=== PATIENT | male | born 1960 | race Caucasian/White ===

== ENCOUNTER 2016-07-02 21:20 | Emergency (ER) | payer MEDICAID ==
[~2016-07-02] VITALS: Ht 172.7 cm; Wt 98.4 kg
[~2016-07-02 21:20] MED LIST: IBUP-1174 OR; OME20GT; QUET300T14 OR
[2016-07-02 21:53] LABS: Basophils # (auto) 0 uL; Basophils % (auto) 0.4 % (0.0-2.0); Eosinophils # (auto) 0.2 uL; Eosinophils % (auto) 2.5 % (0.0-7.0); Hematocrit 41.3 % (41.0-53.0); Hemoglobin 14.3 g/dL (13.5-17.5); Lymphocytes # (auto) 2.3 uL; Lymphocytes % (auto) 27.7 % (10.0-50.0); Mean Corpuscular Hemoglobin 30.2 pg (28.0-32.0); Mean Corpuscular Hgb Conc. 34.6 g/dL (32.0-36.0); Mean Corpuscular Volume 87.3 fL (80.0-100.0); Mean Platelet Volume 7.7 fL (7.4-10.4); Monocytes # (auto) 0.4 uL; Monocytes % (auto) 5.4 % (0.0-12.0); Neutrophils # (auto) 5.2 uL; Platelet Count (auto) 219 10^3/uL (140-450); Red Cell Distribution Width 13.4 % (11.6-16.0); White Blood Cell 8.2 10^3/uL (4.4-10.8)
[2016-07-02 22:18] LABS: Albumin 3.5 g/dL (3.4-5.0); Potassium 3.7 mmol/L (3.5-5.1)
[2016-07-02 22:25] LABS: BUN/Creatinine Ratio 15.3; Bilirubin, Total 0.3 mg/dL (0.2-1.0)
[2016-07-02 22:27] LABS: Total Protein 7.3 g/dL (6.4-8.2)
[2016-07-03] MEDS ORDERED: IPRATROPIUM BROM 0.5 MG/2.5ML INH SOL NEB ONE (02:45)
[2016-07-03] MEDS ORDERED: ALBUTEROL SULF 2.5 MG/0.5ML(0.5%) NEB SOLN NEB ONE (02:45)
[2016-07-03] MEDS ORDERED: methylPREDNISolone SOD SUCC 125 MG/2 ML VL IV ONE (02:45)
[2016-07-03 03:38] VITALS: BP 131/92
== END 2016-07-03 04:47 | disposition home or self-care (01) ==
LOC: EDBD 21:20 → EDSEX 21:20 → ER 21:22
DX: J44.9 Chronic obstructive pulmonary disease, unspecified (principal); J40 Bronchitis, not specified as acute or chronic; I10 Essential (primary) hypertension; F17.200 Nicotine dependence, unspecified, uncomplicated
CPT/HCPCS: 36415; 71010; 80053; 85025; 94640; 96374; 99285; J2930

== ENCOUNTER 2016-08-14 06:40 | Emergency (ER) | payer MEDICAID ==
[~2016-08-14] VITALS: Ht 172.7 cm; Wt 122.5 kg
[2016-08-14] MEDS ORDERED: IPRATROPIUM BROM 0.5 MG/2.5ML INH SOL NEB ONE (07:00)
[2016-08-14] MEDS ORDERED: ALBUTEROL SULF 2.5 MG/0.5ML(0.5%) NEB SOLN NEB ONE (07:00)
[2016-08-14 07:17] LABS: Basophils # (auto) 0 uL; Basophils % (auto) 0.4 % (0.0-2.0); Eosinophils # (auto) 0.2 uL; Eosinophils % (auto) 2.8 % (0.0-7.0); Hematocrit 39.8 % (41.0-53.0); Hemoglobin 13.9 g/dL (13.5-17.5); Lymphocytes # (auto) 2.3 uL; Lymphocytes % (auto) 28.7 % (10.0-50.0); Mean Corpuscular Hemoglobin 30.8 pg (28.0-32.0); Mean Corpuscular Hgb Conc. 34.8 g/dL (32.0-36.0); Mean Corpuscular Volume 88.4 fL (80.0-100.0); Mean Platelet Volume 8.5 fL (7.4-10.4); Monocytes # (auto) 0.4 uL; Monocytes % (auto) 5.5 % (0.0-12.0); Neutrophils # (auto) 5.1 uL; Neutrophils % (auto) 62.6 % (37.0-80.0); Platelet Count (auto) 181 10^3/uL (140-450); Red Cell Distribution Width 14.1 % (11.6-16.0); White Blood Cell 8.1 10^3/uL (4.4-10.8)
[2016-08-14 07:30] LABS: INR 0.93 (0.9-1.15); Partial Thromboplastin Time 25.8 sec (22.64-33.71)
[2016-08-14] MEDS ORDERED: SODIUM CHLORIDE 0.9% 1,000 ML IV ONE (07:37)
[2016-08-14 07:47] LABS: Albumin 3.7 g/dL (3.4-5.0); Anion Gap 9 (5-15); Aspartate Aminotransferase 23 U/L (15-37); BUN/Creatinine Ratio 17.8; Blood Urea Nitrogen 21 mg/dL (7-18); Calcium 9.3 mg/dL (8.5-10.1); Carbon Dioxide 25 mmol/L (21-32); Chloride 103 mmol/L (98-107); GFR African American 83 mL/min; GFR Non-African American 68 mL/min; Glucose 102 mg/dL (74-106); Magnesium 1.8 mg/dL (1.6-2.6); Sodium 137 mmol/L (136-145)
[2016-08-14 07:52] LABS: Alkaline Phosphatase 89 U/L (45-117); Bilirubin, Total 0.5 mg/dL (0.2-1.0); Total Protein 7.3 g/dL (6.4-8.2)
[2016-08-14 08:40] LABS: Urine Bilirubin Negative (Negative); Urine Blood TRACE /uL (Negative); Urine Color Yellow (Yellow); Urine Glucose Normal (Normal); Urine Ketone Negative (Negative); Urine Nitrite Negative (Negative); Urine RBC <1 /hpf (0 - 3); Urine Urobilinogen Normal (Negative); Urine pH 5.5 (5.0-8.0)
[2016-08-14 09:35] VITALS: BP 132/87
== END 2016-08-14 11:24 | disposition home or self-care (01) ==
LOC: ER 06:40
DX: J44.1 Chronic obstructive pulmonary disease with (acute) exacerbation (principal); I10 Essential (primary) hypertension; K21.9 Gastro-esophageal reflux disease without esophagitis; F17.210 Nicotine dependence, cigarettes, uncomplicated
CPT/HCPCS: 36415; 71020; 80053; 81001; 83735; 84484; 85025; 85610; 85730; 93005; 94640; 94761; 96360; 99285; J7030

== ENCOUNTER 2016-08-22 01:08 | Inpatient (IN) | payer MEDICAID ==
[~2016-08-22] VITALS: Ht 172.7 cm; Wt 93.2 kg
[2016-08-22 01:37] LABS: Basophils # (auto) 0.1 uL; Basophils % (auto) 0.8 % (0.0-2.0); Eosinophils # (auto) 0.1 uL; Eosinophils % (auto) 1.2 % (0.0-7.0); Hematocrit 41.5 % (41.0-53.0); Lymphocytes # (auto) 2.4 uL; Lymphocytes % (auto) 24.6 % (10.0-50.0); Mean Corpuscular Hemoglobin 30.5 pg (28.0-32.0); Mean Corpuscular Hgb Conc. 33.8 g/dL (32.0-36.0); Mean Corpuscular Volume 90.1 fL (80.0-100.0); Mean Platelet Volume 7.9 fL (7.4-10.4); Monocytes # (auto) 0.7 uL; Monocytes % (auto) 6.9 % (0.0-12.0); Neutrophils # (auto) 6.4 uL; Neutrophils % (auto) 66.5 % (37.0-80.0); Platelet Count (auto) 211 10^3/uL (140-450); Red Cell Distribution Width 14.4 % (11.6-16.0); White Blood Cell 9.6 10^3/uL (4.4-10.8)
[2016-08-22] MEDS ORDERED: ALBUTEROL SULF 2.5 MG/0.5ML(0.5%) NEB SOLN NEB ONE ×2 (01:45→07:15)
[2016-08-22] MEDS ORDERED: IPRATROPIUM BROM 0.5 MG/2.5ML INH SOL NEB ONE ×2 (01:45→07:15)
[2016-08-22 01:49] LABS: INR 0.97 (0.9-1.15); Prothrombin Time 10.5 sec (9.37-12.3)
[2016-08-22 01:55] LABS: Albumin 3.7 g/dL (3.4-5.0); Anion Gap 9 (5-15); Aspartate Aminotransferase 27 U/L (15-37); BUN/Creatinine Ratio 14.4; Blood Urea Nitrogen 27 mg/dL (7-18); Calcium 8.4 mg/dL (8.5-10.1); Carbon Dioxide 24 mmol/L (21-32); Chloride 106 mmol/L (98-107); GFR African American 48 mL/min; GFR Non-African American 40 mL/min; Glucose 107 mg/dL (74-106); Potassium 4.5 mmol/L (3.5-5.1); Sodium 139 mmol/L (136-145)
[2016-08-22 02:00] LABS: Alkaline Phosphatase 60 U/L (45-117); Bilirubin, Total 0.5 mg/dL (0.2-1.0); Total Protein 6.9 g/dL (6.4-8.2)
[2016-08-22 02:37] LABS: Urine Bilirubin Negative (Negative); Urine Color Yellow (Yellow); Urine Glucose Normal (Normal); Urine Granular Cast FEW /lpf (0); Urine Hyaline Cast FEW /lpf (0 - 2); Urine Ketone Negative (Negative); Urine Nitrite Negative (Negative); Urine RBC 1 /hpf (0 - 3); Urine Urobilinogen Normal (Negative); Urine pH 5.5 (5.0-8.0)
[2016-08-22 02:38] LABS: Urine Blood 1+ /uL (Negative)
[2016-08-22] MEDS ORDERED: methylPREDNISolone SOD SUCC 125 MG/2 ML VL IV ONE ×2 (03:45→07:15)
[2016-08-22 04:37] LABS: B-Type Natriuretic Peptide 4.25 pg/mL (0-100)
[2016-08-22 04:46] LABS: Temperature: 21.7 C (20.0-25.0)
[2016-08-22] MEDS ORDERED: cefTRIAXone 1GM/50ML D5W 50 ML IV ONE (07:15)
[2016-08-22] MEDS ORDERED: CLINDAMYCIN 900MG IV 50 ML IV ONE (07:15)
[2016-08-22 08:04] LABS: Lactic Acid w/Reflex 2.1 mmol/L (0.4-2.0)
[2016-08-22 08:08] LABS: REFLEX LACTIC ACID YES OR NO YES
[2016-08-22] MEDS ORDERED: ACETAMINOPHEN 500 MG TAB PO PRN (09:00)
[2016-08-22] MEDS ORDERED: PROMETHAZINE HCL 25 MG/ML 1ML IV PRN (09:00)
[2016-08-22] MEDS ORDERED: LORazepam 0.5 MG TAB PO PRN (09:00)
[2016-08-22] MEDS ORDERED: NITROGLYCERIN 0.4 MG SL TAB SL PRN (09:00)
[2016-08-22] MEDS ORDERED: ALBUTEROL SULF 2.5 MG/0.5ML(0.5%) NEB SOLN NEB PRN (09:00)
[2016-08-22] MEDS ORDERED: MORPHINE SULF INJ 2 MG/ML SYRINGE 1ML IV PRN ×2 (09:00)
[2016-08-22] MEDS ORDERED: LACTULOSE 20Gm/30ML SOLN PO PRN (09:00)
[2016-08-22] MEDS ORDERED: TEMAZEPAM 15 MG CAP PO PRN (09:00)
[2016-08-22] MEDS: amLODIPine BESYLATE 5 MG TAB PO SCH (09:57)
[2016-08-22] MEDS: ENOXAPARIN SOD 40 MG/0.4 ML SYRINGE SC SCH (09:57)
[2016-08-22] MEDS: PANTOPRAZOLE 40 MG TAB PO SCH (09:59)
[2016-08-22] MEDS: QUEtiapine FUMARATE 100 MG TAB PO SCH ×2 (10:00→21:37)
[2016-08-22] MEDS: SODIUM CHLORIDE 0.9% 1,000 ML IV SCH ×2 (10:00→21:38)
[2016-08-22] MEDS: LEVOFLOXACIN 500MG 100 ML IV SCH (10:07)
[2016-08-22] MEDS ORDERED: methylPREDNISolone SOD SUCC 40 MG/ML VL IV SCH (12:00)
[2016-08-22] MEDS: CLINDAMYCIN 600MG IV 50 ML IV SCH ×2 (14:00→21:36)
[2016-08-22] MEDS: HYDROcodone-ACET 5/325MG TAB PO PRN ×2 (14:56→21:38)
[2016-08-22] MEDS: PROMETHAZINE W/CODEINE 5 ML ORAL SYRUP PO PRN (15:02)
[2016-08-22 17:00] VITALS: BP 147/84
[2016-08-22] MEDS: IPRATROPIUM BROM 0.5 MG/2.5ML INH SOL NEB SCH (18:52)
[2016-08-22] MEDS: ALBUTEROL SULF 2.5 MG/0.5ML(0.5%) NEB SOLN NEB SCH (18:52)
[2016-08-22 19:28] VITALS: BP 147/84
[2016-08-22 20:49] VITALS: BP 134/82
[2016-08-22] MEDS: methylPREDNISolone SOD SUCC 40 MG/ML VL IV SCH (21:37)
[2016-08-23] VITALS (7 sets, daily range): BP systolic 122–163; BP diastolic 64–107
[2016-08-23] MEDS: ALBUTEROL SULF 2.5 MG/0.5ML(0.5%) NEB SOLN NEB SCH ×4 (00:53→18:31)
[2016-08-23] MEDS: IPRATROPIUM BROM 0.5 MG/2.5ML INH SOL NEB SCH ×3 (00:53→18:31)
[2016-08-23] MEDS: PROMETHAZINE W/CODEINE 5 ML ORAL SYRUP PO PRN ×3 (02:17→17:12)
[2016-08-23] MEDS: CLINDAMYCIN 600MG IV 50 ML IV SCH ×3 (05:41→21:17)
[2016-08-23 05:44] LABS: Basophils # (auto) 0 uL; Eosinophils # (auto) 0 uL; Eosinophils % (auto) 0.1 % (0.0-7.0); Hematocrit 38.8 % (41.0-53.0); Hemoglobin 13.1 g/dL (13.5-17.5); Lymphocytes # (auto) 0.9 uL; Lymphocytes % (auto) 6.7 % (10.0-50.0); Mean Corpuscular Hemoglobin 30.6 pg (28.0-32.0); Mean Corpuscular Hgb Conc. 33.7 g/dL (32.0-36.0); Mean Corpuscular Volume 90.9 fL (80.0-100.0); Mean Platelet Volume 8.7 fL (7.4-10.4); Monocytes # (auto) 0.4 uL; Monocytes % (auto) 3.2 % (0.0-12.0); Neutrophils # (auto) 11.5 uL; Platelet Count (auto) 167 10^3/uL (140-450); Red Cell Distribution Width 14.6 % (11.6-16.0); White Blood Cell 12.8 10^3/uL (4.4-10.8)
[2016-08-23 06:12] LABS: Albumin 3.4 g/dL (3.4-5.0); BUN/Creatinine Ratio 33.9; Bilirubin, Total 0.6 mg/dL (0.2-1.0); Total Protein 6.8 g/dL (6.4-8.2)
[2016-08-23] MEDS: PANTOPRAZOLE 40 MG TAB PO SCH (10:13)
[2016-08-23] MEDS: methylPREDNISolone SOD SUCC 40 MG/ML VL IV SCH ×2 (10:13→21:18)
[2016-08-23] MEDS: ENOXAPARIN SOD 40 MG/0.4 ML SYRINGE SC SCH (10:14)
[2016-08-23] MEDS: QUEtiapine FUMARATE 100 MG TAB PO SCH ×2 (10:14→21:18)
[2016-08-23] MEDS: LEVOFLOXACIN 500MG 100 ML IV SCH (10:15)
[2016-08-23] MEDS: amLODIPine BESYLATE 5 MG TAB PO SCH (10:31)
[2016-08-23] MEDS: HYDROcodone-ACET 5/325MG TAB PO PRN ×2 (10:31→17:11)
[2016-08-23] MEDS: SODIUM CHLORIDE 0.9% 1,000 ML IV SCH (11:13)
[2016-08-23] MEDS: LABETALOL HCL 5 MG/ML 4ML SYRINGE IV PRN (21:31)
[2016-08-24] VITALS (7 sets, daily range): BP systolic 135–163; BP diastolic 80–107
[2016-08-24] MEDS: IPRATROPIUM BROM 0.5 MG/2.5ML INH SOL NEB SCH ×4 (00:20→19:11)
[2016-08-24] MEDS: ALBUTEROL SULF 2.5 MG/0.5ML(0.5%) NEB SOLN NEB SCH ×4 (00:21→19:11)
[2016-08-24] MEDS: PROMETHAZINE W/CODEINE 5 ML ORAL SYRUP PO PRN ×2 (04:39→19:51)
[2016-08-24] MEDS: CLINDAMYCIN 600MG IV 50 ML IV SCH ×3 (05:04→21:10)
[2016-08-24] MEDS: SODIUM CHLORIDE 0.9% 1,000 ML IV SCH ×2 (05:30→14:21)
[2016-08-24] MEDS: HYDROcodone-ACET 5/325MG TAB PO PRN ×2 (09:04→21:27)
[2016-08-24] MEDS: LEVOFLOXACIN 500MG 100 ML IV SCH (09:05)
[2016-08-24] MEDS ORDERED: AMLO5TAB2 PO (09:22)
[2016-08-24] MEDS ORDERED: BENA20TA4 PO (09:22)
[2016-08-24] MEDS: methylPREDNISolone SOD SUCC 40 MG/ML VL IV SCH ×2 (10:53→21:10)
[2016-08-24] MEDS: ENOXAPARIN SOD 40 MG/0.4 ML SYRINGE SC SCH (10:55)
[2016-08-24] MEDS: amLODIPine BESYLATE 5 MG TAB PO SCH (10:56)
[2016-08-24] MEDS: PANTOPRAZOLE 40 MG TAB PO SCH (10:56)
[2016-08-24] MEDS: QUEtiapine FUMARATE 100 MG TAB PO SCH ×2 (10:57→21:16)
[2016-08-24] MEDS ORDERED: FUROSEMIDE 40 MG/4 ML VIAL IV ONE (14:00)
[2016-08-24] MEDS: BUDESONIDE (INHALATION) 0.5 MG/2 ML NEB NEB SCH (19:11)
[2016-08-24] MEDS: LABETALOL HCL 5 MG/ML 4ML SYRINGE IV PRN (21:11)
[2016-08-25] MEDS: ALBUTEROL SULF 2.5 MG/0.5ML(0.5%) NEB SOLN NEB SCH ×3 (01:09→12:16)
[2016-08-25] MEDS: IPRATROPIUM BROM 0.5 MG/2.5ML INH SOL NEB SCH ×3 (01:09→12:16)
[2016-08-25] MEDS: SODIUM CHLORIDE 0.9% 1,000 ML IV SCH (03:30)
[2016-08-25 04:34] VITALS: BP 133/96
[2016-08-25] MEDS: CLINDAMYCIN 600MG IV 50 ML IV SCH (05:18)
[2016-08-25 05:35] LABS: Basophils # (auto) 0 uL; Basophils % (auto) 0.2 % (0.0-2.0); Eosinophils # (auto) 0 uL; Eosinophils % (auto) 0.1 % (0.0-7.0); Hematocrit 39.9 % (41.0-53.0); Hemoglobin 13.6 g/dL (13.5-17.5); Lymphocytes # (auto) 0.9 uL; Lymphocytes % (auto) 9.4 % (10.0-50.0); Mean Corpuscular Hemoglobin 31.2 pg (28.0-32.0); Mean Corpuscular Hgb Conc. 34.1 g/dL (32.0-36.0); Mean Corpuscular Volume 91.7 fL (80.0-100.0); Mean Platelet Volume 8.4 fL (7.4-10.4); Monocytes # (auto) 0.5 uL; Monocytes % (auto) 4.7 % (0.0-12.0); Neutrophils # (auto) 8.3 uL; Neutrophils % (auto) 85.6 % (37.0-80.0); Platelet Count (auto) 170 10^3/uL (140-450); Red Cell Distribution Width 14.8 % (11.6-16.0); White Blood Cell 9.7 10^3/uL (4.4-10.8)
[2016-08-25 06:01] LABS: Albumin 3.4 g/dL (3.4-5.0); BUN/Creatinine Ratio 31.2; Bilirubin, Total 0.4 mg/dL (0.2-1.0); Calcium 8.9 mg/dL (8.5-10.1); Potassium 4.8 mmol/L (3.5-5.1); Total Protein 6.5 g/dL (6.4-8.2)
[2016-08-25] MEDS: BUDESONIDE (INHALATION) 0.5 MG/2 ML NEB NEB SCH (06:12)
[2016-08-25 08:00] VITALS: BP 156/95
[2016-08-25 09:00] VITALS: BP 144/93
[2016-08-25] MEDS: ENOXAPARIN SOD 40 MG/0.4 ML SYRINGE SC SCH (09:23)
[2016-08-25] MEDS: PANTOPRAZOLE 40 MG TAB PO SCH (09:26)
[2016-08-25] MEDS: methylPREDNISolone SOD SUCC 40 MG/ML VL IV SCH (09:26)
[2016-08-25] MEDS: QUEtiapine FUMARATE 100 MG TAB PO SCH (09:26)
[2016-08-25] MEDS: LEVOFLOXACIN 500MG 100 ML IV SCH (09:27)
[2016-08-25] MEDS: amLODIPine BESYLATE 5 MG TAB PO SCH (09:27)
[2016-08-25 12:21] VITALS: BP 144/93
[2016-08-25] MEDS: HYDROcodone-ACET 5/325MG TAB PO PRN (12:58)
[2016-08-25 13:00] VITALS: BP 144/83
== END 2016-08-25 13:35 | disposition home or self-care (01) | DRG 140 ==
LOC: ER 01:08 → TELE 01:09 → TELE-EAST 11:19
PROVIDERS: ADMIT Internal Medicine; ATTEND Internal Medicine
DX: J44.0 Chronic obstructive pulmonary disease with (acute) lower respiratory infection (principal); J45.901 Unspecified asthma with (acute) exacerbation; I10 Essential (primary) hypertension; K21.9 Gastro-esophageal reflux disease without esophagitis; J44.1 Chronic obstructive pulmonary disease with (acute) exacerbation; F17.210 Nicotine dependence, cigarettes, uncomplicated; F31.9 Bipolar disorder, unspecified; J20.9 Acute bronchitis, unspecified; Z80.1 Family history of malignant neoplasm of trachea, bronchus and lung; F11.90 Opioid use, unspecified, uncomplicated; F15.90 Other stimulant use, unspecified, uncomplicated; F41.9 Anxiety disorder, unspecified; Z90.89 Acquired absence of other organs
CPT/HCPCS: 36415; 71010; 73630; 76775; 80053; 80061; 81001; 83605; 83735; 83880; 84484; 85025; 85610; 85730; 87040; 87070; 87077; 87086; 87186; 87205; 93005; 93970; 94640; 96365; 96375; 96376; J0696; J1956; J3490

== ENCOUNTER 2016-09-13 22:56 | Emergency (ER) | payer MEDICAID ==
[~2016-09-13] VITALS: Ht 172.7 cm; Wt 99.8 kg
[~2016-09-13 22:56] MED LIST changes: +AMLO5TAB2 PO; +BENA20TA14 PO
[2016-09-14 00:35] LABS: Albumin 3.5 g/dL (3.4-5.0); Anion Gap 12 (5-15); Aspartate Aminotransferase 24 U/L (15-37); BUN/Creatinine Ratio 11.3; Blood Urea Nitrogen 15 mg/dL (7-18); Carbon Dioxide 25 mmol/L (21-32); Chloride 100 mmol/L (98-107); GFR African American 72 mL/min; GFR Non-African American 60 mL/min; Glucose 106 mg/dL (74-106); Magnesium 1.7 mg/dL (1.6-2.6); Potassium 4.1 mmol/L (3.5-5.1); Sodium 137 mmol/L (136-145)
[2016-09-14 00:40] LABS: Alkaline Phosphatase 89 U/L (45-117); Bilirubin, Total 0.4 mg/dL (0.2-1.0)
[2016-09-14 00:42] LABS: Basophils # (auto) 0 uL; Basophils % (auto) 0.6 % (0.0-2.0); Eosinophils # (auto) 0.2 uL; Eosinophils % (auto) 3.3 % (0.0-7.0); Hematocrit 40.7 % (41.0-53.0); Hemoglobin 14.2 g/dL (13.5-17.5); Lymphocytes # (auto) 2.3 uL; Lymphocytes % (auto) 36.8 % (10.0-50.0); Mean Corpuscular Hemoglobin 31.4 pg (28.0-32.0); Mean Corpuscular Hgb Conc. 34.8 g/dL (32.0-36.0); Mean Platelet Volume 8.7 fL (7.4-10.4); Monocytes # (auto) 0.4 uL; Neutrophils # (auto) 3.3 uL; Neutrophils % (auto) 53.3 % (37.0-80.0); Platelet Count (auto) 223 10^3/uL (140-450); Red Cell Distribution Width 13.6 % (11.6-16.0); White Blood Cell 6.2 10^3/uL (4.4-10.8)
[2016-09-14 00:51] LABS: B-Type Natriuretic Peptide < 5.0 pg/mL (0-100); Temperature: 21.9 C (20.0-25.0)
[2016-09-14] MEDS ORDERED: IPRATROPIUM BROM 0.5 MG/2.5ML INH SOL NEB ONE ×2 (03:45→05:15)
[2016-09-14] MEDS ORDERED: ALBUTEROL SULF 2.5 MG/0.5ML(0.5%) NEB SOLN NEB ONE ×2 (03:45→05:15)
[2016-09-14 03:51] VITALS: BP 120/77
[2016-09-14] MEDS ORDERED: methylPREDNISolone SOD SUCC 125 MG/2 ML VL IV ONE (05:15)
[2016-09-14 08:25] LABS: Urine Bilirubin Negative (Negative); Urine Blood TRACE /uL (Negative); Urine Color Yellow (Yellow); Urine Glucose Normal (Normal); Urine Ketone Negative (Negative); Urine Mucus FEW (None Seen); Urine Nitrite Negative (Negative); Urine RBC <1 /hpf (0 - 3); Urine Urobilinogen Normal (Negative); Urine pH 5.5 (5.0-8.0)
== END 2016-09-14 07:39 | disposition home or self-care (01) ==
LOC: ER 22:56
DX: J44.1 Chronic obstructive pulmonary disease with (acute) exacerbation (principal); I10 Essential (primary) hypertension; K21.9 Gastro-esophageal reflux disease without esophagitis; F17.210 Nicotine dependence, cigarettes, uncomplicated; F15.10 Other stimulant abuse, uncomplicated; F11.10 Opioid abuse, uncomplicated
CPT/HCPCS: 36415; 71020; 80053; 80307; 80320; 81001; 83735; 83880; 84484; 85025; 93005; 94640; 96374; 99285; J2930; J7030

== ENCOUNTER 2016-09-20 10:58 | Inpatient (IN) | payer MEDICAID ==
[~2016-09-20] VITALS: Ht 172.7 cm; Wt 102.0 kg
[2016-09-20 11:55] LABS: Basophils # (auto) 0 uL; Basophils % (auto) 0.5 % (0.0-2.0); Eosinophils # (auto) 0.2 uL; Eosinophils % (auto) 2.5 % (0.0-7.0); Hematocrit 40.6 % (41.0-53.0); Lymphocytes # (auto) 2.1 uL; Lymphocytes % (auto) 26.1 % (10.0-50.0); Mean Corpuscular Hemoglobin 31.2 pg (28.0-32.0); Mean Corpuscular Hgb Conc. 34.6 g/dL (32.0-36.0); Mean Corpuscular Volume 90.3 fL (80.0-100.0); Mean Platelet Volume 8.1 fL (7.4-10.4); Monocytes # (auto) 0.5 uL; Monocytes % (auto) 5.8 % (0.0-12.0); Neutrophils # (auto) 5.2 uL; Neutrophils % (auto) 65.1 % (37.0-80.0); Platelet Count (auto) 206 10^3/uL (140-450); Red Cell Distribution Width 13.9 % (11.6-16.0); White Blood Cell 8.1 10^3/uL (4.4-10.8)
[2016-09-20 12:28] LABS: Albumin 3.6 g/dL (3.4-5.0); Alkaline Phosphatase 71 U/L (45-117); Anion Gap 8 (5-15); Aspartate Aminotransferase 15 U/L (15-37); BUN/Creatinine Ratio 12.3; Bilirubin, Total 0.7 mg/dL (0.2-1.0); Blood Urea Nitrogen 14 mg/dL (7-18); Calcium 9.1 mg/dL (8.5-10.1); Carbon Dioxide 27 mmol/L (21-32); Chloride 99 mmol/L (98-107); GFR African American 86 mL/min; GFR Non-African American 71 mL/min; Glucose 109 mg/dL (74-106); Potassium 4.1 mmol/L (3.5-5.1); Sodium 134 mmol/L (136-145); Total Protein 6.6 g/dL (6.4-8.2)
[2016-09-20] MEDS ORDERED: methylPREDNISolone SOD SUCC 125 MG/2 ML VL IV ONE (16:00)
[2016-09-20] MEDS ORDERED: IPRATROPIUM BROM 0.5 MG/2.5ML INH SOL NEB ONE (16:00)
[2016-09-20] MEDS ORDERED: FUROSEMIDE 40 MG/4 ML VIAL IV ONE (16:00)
[2016-09-20] MEDS ORDERED: ALBUTEROL SULF 2.5 MG/0.5ML(0.5%) NEB SOLN NEB ONE (16:00)
[2016-09-20] MEDS ORDERED: cefTRIAXone 1GM/50ML D5W 50 ML IV ONE (16:00)
[2016-09-20] MEDS ORDERED: ALBUTEROL SULF 2.5 MG/0.5ML(0.5%) NEB SOLN NEB PRN (16:30)
[2016-09-20] MEDS ORDERED: TEMAZEPAM 15 MG CAP PO PRN (16:30)
[2016-09-20] MEDS ORDERED: NITROGLYCERIN 0.4 MG SL TAB SL PRN (16:30)
[2016-09-20] MEDS ORDERED: LORazepam 0.5 MG TAB PO PRN (16:30)
[2016-09-20] MEDS ORDERED: HYDROcodone-ACET 5/325MG TAB PO PRN (16:30)
[2016-09-20] MEDS ORDERED: ACETAMINOPHEN 500 MG TAB PO PRN (16:30)
[2016-09-20] MEDS ORDERED: LACTULOSE 20Gm/30ML SOLN PO PRN (16:30)
[2016-09-20] MEDS ORDERED: PROMETHAZINE HCL 25 MG/ML 1ML IV PRN (16:30)
[2016-09-20] MEDS ORDERED: MORPHINE SULF INJ 2 MG/ML SYRINGE 1ML IV PRN ×2 (16:30)
[2016-09-20 16:44] LABS: B-Type Natriuretic Peptide 2.14 pg/mL (0-100)
[2016-09-20 16:50] LABS: Temperature: 22.7 C (20.0-25.0)
[2016-09-20] MEDS ORDERED: BENAZEPRIL HCL 10 MG TAB PO ONE (17:00)
[2016-09-20] MEDS ORDERED: amLODIPine BESYLATE 5 MG TAB PO ONE (17:00)
[2016-09-20 17:07] LABS: Urine Bilirubin Negative (Negative); Urine Blood TRACE /uL (Negative); Urine Color Yellow (Yellow); Urine Glucose Normal (Normal); Urine Ketone Negative (Negative); Urine Nitrite Negative (Negative); Urine RBC 2 /hpf (0 - 3); Urine Urobilinogen Normal (Negative); Urine pH 5.5 (5.0-8.0)
[2016-09-20] MEDS: SODIUM CHLORIDE 0.9% 1,000 ML IV SCH (17:25)
[2016-09-20] MEDS: DOXYCYCLINE HYC 100MG/250ML 250 ML IV SCH (17:25)
[2016-09-20] MEDS: PANTOPRAZOLE 40 MG TAB PO SCH (17:27)
[2016-09-20 18:33] VITALS: BP 161/96
[2016-09-20] MEDS: ALBUTEROL SULF 2.5 MG/0.5ML(0.5%) NEB SOLN NEB SCH ×2 (18:55→23:44)
[2016-09-20] MEDS: IPRATROPIUM BROM 0.5 MG/2.5ML INH SOL NEB SCH ×2 (18:55→23:44)
[2016-09-20 19:49] VITALS: BP 161/96
[2016-09-20] MEDS ORDERED: MIRT15TA PO (21:42)
[2016-09-20] MEDS ORDERED: QUEtiapine FUMARATE 100 MG TAB PO SCH (22:00)
[2016-09-20 22:29] VITALS: BP 101/78
[2016-09-20] MEDS: methylPREDNISolone SOD SUCC 40 MG/ML VL IV SCH (23:34)
[2016-09-21 05:00] VITALS: BP 117/77
[2016-09-21] MEDS: methylPREDNISolone SOD SUCC 40 MG/ML VL IV SCH ×2 (05:24→12:46)
[2016-09-21] MEDS: DOXYCYCLINE HYC 100MG/250ML 250 ML IV SCH (05:24)
[2016-09-21] MEDS: SODIUM CHLORIDE 0.9% 1,000 ML IV SCH (05:33)
[2016-09-21 06:09] LABS: Basophils # (auto) 0 uL; Basophils % (auto) 0.2 % (0.0-2.0); Eosinophils # (auto) 0 uL; Eosinophils % (auto) 0.2 % (0.0-7.0); Hemoglobin 13.8 g/dL (13.5-17.5); Lymphocytes % (auto) 10.8 % (10.0-50.0); Mean Corpuscular Hemoglobin 31.8 pg (28.0-32.0); Mean Corpuscular Hgb Conc. 35.3 g/dL (32.0-36.0); Mean Platelet Volume 8.1 fL (7.4-10.4); Monocytes # (auto) 0.1 uL; Monocytes % (auto) 0.8 % (0.0-12.0); Neutrophils # (auto) 8.4 uL; Platelet Count (auto) 195 10^3/uL (140-450); Red Cell Distribution Width 13.8 % (11.6-16.0); White Blood Cell 9.5 10^3/uL (4.4-10.8)
[2016-09-21] MEDS: ALBUTEROL SULF 2.5 MG/0.5ML(0.5%) NEB SOLN NEB SCH ×2 (06:25→12:16)
[2016-09-21] MEDS: IPRATROPIUM BROM 0.5 MG/2.5ML INH SOL NEB SCH ×2 (06:25→12:16)
[2016-09-21 09:30] VITALS: BP 131/81
[2016-09-21] MEDS: PANTOPRAZOLE 40 MG TAB PO SCH (09:56)
[2016-09-21] MEDS ORDERED: amLODIPine BESYLATE 5 MG TAB PO SCH (10:00)
[2016-09-21] MEDS ORDERED: ENOXAPARIN SOD 40 MG/0.4 ML SYRINGE SC SCH (10:00)
[2016-09-21] MEDS ORDERED: BENAZEPRIL HCL 10 MG TAB PO SCH (10:00)
[2016-09-21 12:46] VITALS: BP 131/81
== END 2016-09-21 13:50 | disposition home or self-care (01) | DRG 140 ==
LOC: ER 10:58 → TELE 10:59 → TELE-EAST 18:04
PROVIDERS: ADMIT Internal Medicine; ATTEND Internal Medicine
DX: J44.0 Chronic obstructive pulmonary disease with (acute) lower respiratory infection (principal); E87.1 Hypo-osmolality and hyponatremia; F17.210 Nicotine dependence, cigarettes, uncomplicated; J44.1 Chronic obstructive pulmonary disease with (acute) exacerbation; J45.901 Unspecified asthma with (acute) exacerbation; K21.9 Gastro-esophageal reflux disease without esophagitis; F31.9 Bipolar disorder, unspecified; F41.9 Anxiety disorder, unspecified; J20.9 Acute bronchitis, unspecified; Z90.89 Acquired absence of other organs; Z71.89 Other specified counseling; Z80.9 Family history of malignant neoplasm, unspecified
CPT/HCPCS: 36415; 71020; 80053; 81001; 83880; 84484; 85025; 87070; 87205; 93005; 94640; 96365; 96375; 99291; J0696; J3490

== ENCOUNTER 2016-10-14 03:13 | Inpatient (IN) | payer MEDICAID ==
[~2016-10-14] VITALS: Ht 172.7 cm; Wt 84.9 kg
[~2016-10-14 03:13] MED LIST changes: +MIRT15TA PO
[2016-10-14] MEDS ORDERED: methylPREDNISolone SOD SUCC 125 MG/2 ML VL IV ONE (05:00)
[2016-10-14] MEDS ORDERED: LEVOFLOXACIN 750MG 150 ML IV ONE (05:00)
[2016-10-14] MEDS ORDERED: ALBUTEROL SULF 2.5 MG/0.5ML(0.5%) NEB SOLN NEB ONE ×2 (05:00→09:15)
[2016-10-14] MEDS ORDERED: IPRATROPIUM BROM 0.5 MG/2.5ML INH SOL NEB ONE (05:00)
[2016-10-14 07:40] LABS: Basophils # (auto) 0 uL; Basophils % (auto) 0.4 % (0.0-2.0); CONDITION Y; Eosinophils # (auto) 0 uL; Hemoglobin 11.9 g/dL (13.5-17.5); Lymphocytes # (auto) 0.8 uL; Lymphocytes % (auto) 16.2 % (10.0-50.0); Mean Corpuscular Hgb Conc. 35.9 g/dL (32.0-36.0); Mean Corpuscular Volume 89.1 fL (80.0-100.0); Mean Platelet Volume 7.9 fL (7.4-10.4); Monocytes # (auto) 0.1 uL; Monocytes % (auto) 1.9 % (0.0-12.0); Neutrophils # (auto) 3.8 uL; Neutrophils % (auto) 80.5 % (37.0-80.0); Platelet Count (auto) 195 10^3/uL (140-450); Red Cell Distribution Width 13.7 % (11.6-16.0); White Blood Cell 4.7 10^3/uL (4.4-10.8)
[2016-10-14 07:55] LABS: INR 0.97 (0.9-1.15); Partial Thromboplastin Time 26.5 sec (22.64-33.71); Prothrombin Time 10.6 sec (9.37-12.3)
[2016-10-14 08:09] LABS: Albumin 3.2 g/dL (3.4-5.0); BUN/Creatinine Ratio 10.8; Bilirubin, Total 0.3 mg/dL (0.2-1.0); Calcium 7.6 mg/dL (8.5-10.1); Magnesium 1.5 mg/dL (1.6-2.6); Potassium 3.9 mmol/L (3.5-5.1); Total Protein 5.8 g/dL (6.4-8.2)
[2016-10-14 08:10] LABS: B-Type Natriuretic Peptide 8.25 pg/mL (0-100)
[2016-10-14 08:11] LABS: Temperature: 23.5 C (20.0-25.0)
[2016-10-14] MEDS ORDERED: BENAZEPRIL HCL 10 MG TAB PO ONE (10:30)
[2016-10-14] MEDS ORDERED: DOCUSATE SOD 100 MG CAP PO PRN (10:30)
[2016-10-14] MEDS ORDERED: VANCOMYCIN PER PHARMACY 0 MG IV SCH (10:30)
[2016-10-14] MEDS ORDERED: amLODIPine BESYLATE 5 MG TAB PO ONE (10:30)
[2016-10-14] MEDS ORDERED: POTASSIUM CHL 10 Meq TABLET PO ONE (10:30)
[2016-10-14] MEDS ORDERED: MAGNESIUM SULFATE 1GM/100ML 100 ML IV ONE (10:30)
[2016-10-14] MEDS ORDERED: [UNRECOGNIZED DRUG - REMARK] PO PRN (10:30)
[2016-10-14] MEDS ORDERED: FUROSEMIDE 40 MG TAB PO ONE (10:30)
[2016-10-14] MEDS ORDERED: MONTELUKAST SODIUM 10 MG TAB PO ONE (10:30)
[2016-10-14] MEDS ORDERED: MORPHINE SULFATE 4 MG/ML SYRG IV PRN (10:30)
[2016-10-14] MEDS ORDERED: cefTRIAXone 1GM/50ML D5W 50 ML IV ONE (10:30)
[2016-10-14] MEDS ORDERED: PANTOPRAZOLE 40 MG TAB PO ONE (10:30)
[2016-10-14] MEDS ORDERED: ONDANSETRON HCL 4 MG/2 ML VIAL IV PRN (10:30)
[2016-10-14] MEDS ORDERED: TEMAZEPAM 15 MG CAP PO PRN (10:30)
[2016-10-14] MEDS ORDERED: ACETAMINOPHEN 325 MG TAB PO PRN (10:30)
[2016-10-14] MEDS ORDERED: HYDROcodone-ACET 5/325MG TAB PO PRN (10:30)
[2016-10-14] MEDS: MULTIPLE VITAMIN TAB PO SCH (11:00)
[2016-10-14 11:54] LABS: Urine Bilirubin Negative (Negative); Urine Color Yellow (Yellow); Urine Glucose Normal (Normal); Urine Hyaline Cast FEW /lpf (0 - 2); Urine Ketone Negative (Negative); Urine Nitrite Negative (Negative); Urine RBC 2 /hpf (0 - 3); Urine Squamous Epithelial Cell FEW /hpf (<5); Urine Urobilinogen Normal (Negative)
[2016-10-14 11:55] LABS: Urine Blood 1+ /uL (Negative)
[2016-10-14] MEDS: IPRATROPIUM BROM 0.5 MG/2.5ML INH SOL NEB SCH ×2 (12:00→19:22)
[2016-10-14] MEDS ORDERED: VANCOMYCIN 1GM/250ML D5W 250 ML IV SCH (12:00)
[2016-10-14] MEDS: ALBUTEROL SULF 2.5 MG/0.5ML(0.5%) NEB SOLN NEB SCH ×2 (12:00→19:22)
[2016-10-14 12:15] VITALS: BP 138/68
[2016-10-14 13:38] LABS: Lactic Acid w/Reflex 3.7 mmol/L (0.4-2.0)
[2016-10-14 13:50] VITALS: BP 134/75
[2016-10-14 14:03] LABS: REFLEX LACTIC ACID YES OR NO YES
[2016-10-14 14:36] VITALS: BP 138/68
[2016-10-14] MEDS: methylPREDNISolone SOD SUCC 40 MG/ML VL IV SCH ×2 (14:56→18:45)
[2016-10-14] MEDS: VANCOMYCIN 1GM/250ML D5W 250 ML IV SCH ×2 (14:57→23:00)
[2016-10-14] MEDS: BOOST PLUS 8 ounce PO SCH ×2 (14:57→18:36)
[2016-10-14] MEDS: SODIUM CHLOR 0.9% PF (SALINE LOCK) 10ML VIAL IV SCH ×2 (14:57→22:08)
[2016-10-14 15:32] LABS: Lactic Acid w/Reflex 3.2 mmol/L (0.4-2.0)
[2016-10-14 15:36] LABS: REFLEX LACTIC ACID YES OR NO NO
[2016-10-14 22:00] VITALS: BP 140/93
[2016-10-14] MEDS ORDERED: FAMOTIDINE 20 MG TAB PO SCH (22:00)
[2016-10-14] MEDS: QUEtiapine FUMARATE 100 MG TAB PO SCH (22:08)
[2016-10-15] MEDS: methylPREDNISolone SOD SUCC 40 MG/ML VL IV SCH ×5 (00:18→23:53)
[2016-10-15] MEDS: IPRATROPIUM BROM 0.5 MG/2.5ML INH SOL NEB SCH ×4 (00:50→18:50)
[2016-10-15] MEDS: ALBUTEROL SULF 2.5 MG/0.5ML(0.5%) NEB SOLN NEB SCH ×4 (00:50→18:50)
[2016-10-15 05:00] VITALS: BP 119/75
[2016-10-15 05:38] LABS: Basophils # (auto) 0 uL; Basophils % (auto) 0.1 % (0.0-2.0); CONDITION Y; Eosinophils # (auto) 0 uL; Hematocrit 35.9 % (41.0-53.0); Hemoglobin 12.4 g/dL (13.5-17.5); Lymphocytes # (auto) 0.7 uL; Lymphocytes % (auto) 7.9 % (10.0-50.0); Mean Corpuscular Hemoglobin 31.3 pg (28.0-32.0); Mean Corpuscular Hgb Conc. 34.5 g/dL (32.0-36.0); Mean Corpuscular Volume 90.9 fL (80.0-100.0); Mean Platelet Volume 8.8 fL (7.4-10.4); Monocytes # (auto) 0.1 uL; Monocytes % (auto) 1.2 % (0.0-12.0); Neutrophils # (auto) 7.8 uL; Neutrophils % (auto) 90.8 % (37.0-80.0); Platelet Count (auto) 198 10^3/uL (140-450); Red Cell Distribution Width 13.6 % (11.6-16.0); White Blood Cell 8.5 10^3/uL (4.4-10.8)
[2016-10-15 06:06] LABS: Albumin 3.3 g/dL (3.4-5.0); BUN/Creatinine Ratio 18.4; Bilirubin, Total 0.3 mg/dL (0.2-1.0); Calcium 9.3 mg/dL (8.5-10.1); Potassium 3.8 mmol/L (3.5-5.1)
[2016-10-15] MEDS: SODIUM CHLOR 0.9% PF (SALINE LOCK) 10ML VIAL IV SCH ×3 (06:24→22:24)
[2016-10-15] MEDS: VANCOMYCIN 1GM/250ML D5W 250 ML IV SCH ×3 (06:51→23:30)
[2016-10-15 09:00] VITALS: BP 131/90
[2016-10-15] MEDS: FUROSEMIDE 40 MG TAB PO SCH (09:48)
[2016-10-15] MEDS: POTASSIUM CHL 10 Meq TABLET PO SCH (09:48)
[2016-10-15] MEDS: BENAZEPRIL HCL 10 MG TAB PO SCH (09:50)
[2016-10-15] MEDS: PANTOPRAZOLE 40 MG TAB PO SCH (09:50)
[2016-10-15] MEDS: amLODIPine BESYLATE 5 MG TAB PO SCH (09:50)
[2016-10-15] MEDS: MULTIPLE VITAMIN TAB PO SCH (09:51)
[2016-10-15] MEDS: MONTELUKAST SODIUM 10 MG TAB PO SCH (09:51)
[2016-10-15] MEDS: BOOST PLUS 8 ounce PO SCH ×3 (11:04→18:48)
[2016-10-15] MEDS: cefTRIAXone 1GM/50ML D5W 50 ML IV SCH (11:04)
[2016-10-15 13:00] VITALS: BP 128/74
[2016-10-15 17:00] VITALS: BP 131/86
[2016-10-15] MEDS: QUEtiapine FUMARATE 100 MG TAB PO SCH (22:24)
[2016-10-16 05:00] VITALS: BP 155/98
[2016-10-16] MEDS: SODIUM CHLOR 0.9% PF (SALINE LOCK) 10ML VIAL IV SCH (05:50)
[2016-10-16] MEDS: methylPREDNISolone SOD SUCC 40 MG/ML VL IV SCH ×2 (05:50→12:18)
[2016-10-16] MEDS: ALBUTEROL SULF 2.5 MG/0.5ML(0.5%) NEB SOLN NEB SCH (06:28)
[2016-10-16] MEDS: IPRATROPIUM BROM 0.5 MG/2.5ML INH SOL NEB SCH (06:28)
[2016-10-16] MEDS: VANCOMYCIN 1GM/250ML D5W 250 ML IV SCH (07:00)
[2016-10-16 08:00] VITALS: BP 131/60
[2016-10-16 09:00] VITALS: BP 147/78
[2016-10-16] MEDS: amLODIPine BESYLATE 5 MG TAB PO SCH (09:11)
[2016-10-16] MEDS: MONTELUKAST SODIUM 10 MG TAB PO SCH (09:11)
[2016-10-16] MEDS: BOOST PLUS 8 ounce PO SCH ×2 (09:12→12:18)
[2016-10-16] MEDS: BENAZEPRIL HCL 10 MG TAB PO SCH (09:12)
[2016-10-16] MEDS: cefTRIAXone 1GM/50ML D5W 50 ML IV SCH (09:12)
[2016-10-16] MEDS: FUROSEMIDE 40 MG TAB PO SCH (09:12)
[2016-10-16] MEDS: MULTIPLE VITAMIN TAB PO SCH (09:21)
[2016-10-16] MEDS: PANTOPRAZOLE 40 MG TAB PO SCH (09:21)
[2016-10-16] MEDS: POTASSIUM CHL 10 Meq TABLET PO SCH (09:21)
[2016-10-16 11:53] VITALS: BP 147/78
== END 2016-10-16 12:47 | disposition home or self-care (01) | DRG 140 ==
LOC: EDBD 03:13 → ER 03:13 → OVERFLOW 03:14 → TELE-E-ADS 11:00 → WEST WING 14:26
PROVIDERS: ADMIT Internal Medicine; ATTEND Internal Medicine
DX: J44.0 Chronic obstructive pulmonary disease with (acute) lower respiratory infection (principal); J18.9 Pneumonia, unspecified organism; E44.0 Moderate protein-calorie malnutrition; I13.0 Hypertensive heart and chronic kidney disease with heart failure and stage 1 through stage 4 chronic kidney disease, or unspecified chronic kidney disease; I50.9 Heart failure, unspecified; J45.909 Unspecified asthma, uncomplicated; K21.9 Gastro-esophageal reflux disease without esophagitis; B19.20 Unspecified viral hepatitis C without hepatic coma; N18.2 Chronic kidney disease, stage 2 (mild); F17.210 Nicotine dependence, cigarettes, uncomplicated; F31.9 Bipolar disorder, unspecified; E87.1 Hypo-osmolality and hyponatremia; E66.9 Obesity, unspecified; F41.9 Anxiety disorder, unspecified; J20.9 Acute bronchitis, unspecified; J44.1 Chronic obstructive pulmonary disease with (acute) exacerbation; Z79.899 Other long term (current) drug therapy; Z90.49 Acquired absence of other specified parts of digestive tract; Z71.6 Tobacco abuse counseling; Z68.28 Body mass index [BMI] 28.0-28.9, adult
CPT/HCPCS: 36415; 71010; 80053; 80202; 81001; 83605; 83735; 83880; 84443; 84484; 85025; 85610; 85730; 87040; 87070; 87205; 93005; 93306; 94640; 96365; J0696; J1956

== ENCOUNTER 2017-12-08 15:13 | Emergency (ER) | payer MEDICAID ==
[~2017-12-08] VITALS: Ht 172.7 cm; Wt 72.6 kg
[2017-12-08 22:14] VITALS: BP 146/89
== END 2017-12-08 22:25 | disposition home or self-care (01) ==
LOC: ER 15:13
DX: R10.9 Unspecified abdominal pain (principal); J44.9 Chronic obstructive pulmonary disease, unspecified; K21.9 Gastro-esophageal reflux disease without esophagitis; I10 Essential (primary) hypertension; F17.210 Nicotine dependence, cigarettes, uncomplicated; Z79.899 Other long term (current) drug therapy; Z90.49 Acquired absence of other specified parts of digestive tract
CPT/HCPCS: 74176

== ENCOUNTER 2017-12-18 22:49 | Emergency (ER) | payer MEDICAID ==
[~2017-12-18] VITALS: Ht 172.7 cm; Wt 72.6 kg
[~2017-12-18 22:49] MED LIST changes: +AMLO5TAB13 PO; -AMLO5TAB2 PO
[2017-12-18 23:10] LABS: Basophils # (auto) 0 uL; Basophils % (auto) 0.7 % (0.0-2.0); Eosinophils # (auto) 0.1 uL; Eosinophils % (auto) 1.5 % (0.0-7.0); Hematocrit 40.7 % (41.0-53.0); Hemoglobin 14.1 g/dL (13.5-17.5); Lymphocytes # (auto) 1.5 uL; Lymphocytes % (auto) 21.7 % (10.0-50.0); Mean Corpuscular Hemoglobin 31.4 pg (28.0-32.0); Mean Corpuscular Hgb Conc. 34.8 g/dL (32.0-36.0); Mean Corpuscular Volume 90.3 fL (80.0-100.0); Monocytes # (auto) 0.3 uL; Monocytes % (auto) 4.9 % (0.0-12.0); Neutrophils # (auto) 4.8 uL; Neutrophils % (auto) 71.2 % (37.0-80.0); Platelet Count (auto) 226 10^3/uL (140-450); Red Blood Cells 4.51 10^6/uL (4.5-5.90); White Blood Cell 6.8 10^3/uL (4.4-10.8)
[2017-12-18 23:27] LABS: Alanine Aminotransferase 29 U/L (16-61); Albumin 3.4 g/dL (3.4-5.0); Anion Gap 6 (5-15); Aspartate Aminotransferase 17 U/L (15-37); BUN/Creatinine Ratio 20.8; Blood Urea Nitrogen 16 mg/dL (7-18); Calcium 8.4 mg/dL (8.5-10.1); Carbon Dioxide 29 mmol/L (21-32); Chloride 105 mmol/L (98-107); GFR African American 135 mL/min; GFR Non-African American 111 mL/min; Glucose 87 mg/dL (74-106); Potassium 3.5 mmol/L (3.5-5.1); Sodium 140 mmol/L (136-145)
[2017-12-18 23:32] LABS: Alkaline Phosphatase 66 U/L (45-117); Bilirubin, Total 0.4 mg/dL (0.2-1.0); Total Protein 6.6 g/dL (6.4-8.2)
[2017-12-19] MEDS ORDERED: LISINOPRIL 20 MG TAB PO ONE (00:15)
[2017-12-19] MEDS ORDERED: LORazepam 0.5 MG TAB PO ONE (00:15)
[2017-12-19 00:20] LABS: Urine Bacteria NONE SEEN /hpf (None Seen); Urine Blood 1+ /uL (Negative); Urine Specific Gravity 1.015 (1.001-1.035); Urine WBC <1 /hpf (0 - 3)
[2017-12-19 00:26] VITALS: BP 192/85
[2017-12-19 00:36] LABS: Amphetamine Screen, Urine NEGATIVE (NEGATIVE); Barbiturate Scree,Urine NEGATIVE (NEGATIVE); Benzodiazephine Screen, Urine NEGATIVE (NEGATIVE); Cannabinoid Screen, Urine NEGATIVE (NEGATIVE); Cocaine Screen, Urine NEGATIVE (NEGATIVE); Opiate Scree,Urine NEGATIVE (NEGATIVE); Phencyclidine Screen, Urine NEGATIVE (NEGATIVE)
== END 2017-12-19 01:44 | disposition home or self-care (01) ==
LOC: EDBD 22:49 → ER 22:52
DX: K40.90 Unilateral inguinal hernia, without obstruction or gangrene, not specified as recurrent (principal); I10 Essential (primary) hypertension; J44.9 Chronic obstructive pulmonary disease, unspecified; K21.9 Gastro-esophageal reflux disease without esophagitis; F17.210 Nicotine dependence, cigarettes, uncomplicated; Z79.899 Other long term (current) drug therapy; Z90.49 Acquired absence of other specified parts of digestive tract
CPT/HCPCS: 36415; 71045; 80053; 80307; 81001; 84484; 85025; 93005

== ENCOUNTER 2018-02-26 16:38 | Emergency (ER) | payer MEDICAID ==
[~2018-02-26] VITALS: Ht 172.7 cm; Wt 70.3 kg
[2018-02-26 21:47] VITALS: BP 163/96
[2018-02-26 21:53] LABS: Basophils # (auto) 0 uL; Basophils % (auto) 0.6 % (0.0-2.0); Eosinophils # (auto) 0.2 uL; Eosinophils % (auto) 2.1 % (0.0-7.0); Hemoglobin 14.5 g/dL (13.5-17.5); Lymphocytes # (auto) 1.6 uL; Lymphocytes % (auto) 19.8 % (10.0-50.0); Mean Corpuscular Hemoglobin 31.6 pg (28.0-32.0); Mean Corpuscular Hgb Conc. 35.3 g/dL (32.0-36.0); Mean Corpuscular Volume 89.4 fL (80.0-100.0); Monocytes # (auto) 0.6 uL; Monocytes % (auto) 7.7 % (0.0-12.0); Neutrophils # (auto) 5.7 uL; Neutrophils % (auto) 69.8 % (37.0-80.0); Platelet Count (auto) 178 10^3/uL (140-450); Red Blood Cells 4.59 10^6/uL (4.5-5.90); Red Cell Distribution Width 13.1 % (11.8-14.3); White Blood Cell 8.2 10^3/uL (4.4-10.8)
[2018-02-26 22:05] LABS: Albumin 3.3 g/dL (3.4-5.0); Calcium 8.4 mg/dL (8.5-10.1); Potassium 3.2 mmol/L (3.5-5.1)
[2018-02-26 22:09] LABS: BUN/Creatinine Ratio 19.6; Total Protein 6.4 g/dL (6.4-8.2)
== END 2018-02-26 23:35 | disposition home or self-care (01) ==
LOC: ER 16:38 → EDBD 16:38 → ER 23:35
DX: K40.90 Unilateral inguinal hernia, without obstruction or gangrene, not specified as recurrent (principal); J44.9 Chronic obstructive pulmonary disease, unspecified; K21.9 Gastro-esophageal reflux disease without esophagitis; I10 Essential (primary) hypertension; F17.210 Nicotine dependence, cigarettes, uncomplicated; F12.90 Cannabis use, unspecified, uncomplicated; F15.90 Other stimulant use, unspecified, uncomplicated; Z90.49 Acquired absence of other specified parts of digestive tract
CPT/HCPCS: 36415; 74176; 80053; 85025

== ENCOUNTER 2018-03-23 09:00 | Emergency (ER) | payer MEDICAID ==
[~2018-03-23] VITALS: Ht 175.3 cm; Wt 65.8 kg
[2018-03-23 09:17] VITALS: BP 148/78
[2018-03-23 09:40] LABS: Basophils # (auto) 0.1 uL; Basophils % (auto) 0.9 % (0.0-2.0); Eosinophils # (auto) 0.1 uL; Eosinophils % (auto) 1.9 % (0.0-7.0); Hemoglobin 13.9 g/dL (13.5-17.5); Lymphocytes # (auto) 1.4 uL; Lymphocytes % (auto) 20.2 % (10.0-50.0); Mean Corpuscular Hemoglobin 31.2 pg (28.0-32.0); Mean Corpuscular Hgb Conc. 34.8 g/dL (32.0-36.0); Mean Corpuscular Volume 89.9 fL (80.0-100.0); Monocytes # (auto) 0.5 uL; Monocytes % (auto) 6.4 % (0.0-12.0); Neutrophils % (auto) 70.6 % (37.0-80.0); Platelet Count (auto) 209 10^3/uL (140-450); Red Blood Cells 4.45 10^6/uL (4.5-5.90); Red Cell Distribution Width 13.7 % (11.8-14.3); White Blood Cell 7.1 10^3/uL (4.4-10.8)
[2018-03-23 09:57] LABS: Alanine Aminotransferase 31 U/L (16-61); Albumin 3.5 g/dL (3.4-5.0); Anion Gap 4 (5-15); Blood Urea Nitrogen 30 mg/dL (7-18); Calcium 8.6 mg/dL (8.5-10.1); Carbon Dioxide 26 mmol/L (21-32); Chloride 107 mmol/L (98-107); Glucose 85 mg/dL (74-106); Magnesium 2.6 mg/dL (1.6-2.6); Potassium 3.7 mmol/L (3.5-5.1); Sodium 137 mmol/L (136-145)
[2018-03-23 10:02] LABS: Alkaline Phosphatase 124 U/L (45-117); Aspartate Aminotransferase 23 U/L (15-37); BUN/Creatinine Ratio 39.5; Bilirubin, Total 0.6 mg/dL (0.2-1.0); GFR African American 136 mL/min; GFR Non-African American 113 mL/min; Total Protein 6.7 g/dL (6.4-8.2)
[2018-03-23] MEDS ORDERED: predniSONE 20 MG TAB PO ONE (10:30)
[2018-03-23] MEDS ORDERED: IPRATROPIUM BROM 0.5 MG/2.5ML INH SOL HHN ONE (10:30)
[2018-03-23] MEDS ORDERED: ALBUTEROL SULF 2.5 MG/0.5ML(0.5%) NEB SOLN HHN ONE (10:30)
[2018-03-23] MEDS ORDERED: ACETAMINOPHEN/CODEINE#3 (300/30mg) TAB PO ONE (11:15)
== END 2018-03-23 11:39 | disposition home or self-care (01) ==
LOC: ER 09:00 → EDBD 09:00 → ER 11:39
DX: S09.8XXA Other specified injuries of head, initial encounter (principal); J43.9 Emphysema, unspecified; F17.210 Nicotine dependence, cigarettes, uncomplicated; F12.10 Cannabis abuse, uncomplicated; F15.10 Other stimulant abuse, uncomplicated; K21.9 Gastro-esophageal reflux disease without esophagitis; I10 Essential (primary) hypertension; W22.8XXA Striking against or struck by other objects, initial encounter; Y93.89 Activity, other specified; Y92.89 Other specified places as the place of occurrence of the external cause; Y99.8 Other external cause status
CPT/HCPCS: 36415; 70450; 71045; 80053; 83735; 84484; 85025; 93005; 94640; 99284; J7512; J7611; J7644

== ENCOUNTER 2018-04-10 02:52 | Emergency (ER) | payer MEDICAID ==
[~2018-04-10] VITALS: Ht 177.8 cm; Wt 72.6 kg
[2018-04-10 02:58] VITALS: BP 160/100
== END 2018-04-10 03:09 | disposition left against medical advice (07) ==
LOC: EDBD 02:52 → ER 02:55
DX: R05 Cough (principal); Z53.21 Procedure and treatment not carried out due to patient leaving prior to being seen by health care provider

== ENCOUNTER 2018-06-08 05:29 | Inpatient (IN) | payer MEDICAID ==
[~2018-06-08] VITALS: Ht 175.3 cm; Wt 63.1 kg
[2018-06-08 07:30] LABS: Albumin 3.3 g/dL (3.4-5.0); Potassium 4.1 mmol/L (3.5-5.1)
[2018-06-08 07:34] LABS: BUN/Creatinine Ratio 24.1; Bilirubin, Total 0.8 mg/dL (0.2-1.0)
[2018-06-08 08:10] LABS: Basophils # (auto) 0.1 uL; Eosinophils # (auto) 0 uL
[2018-06-08 08:12] LABS: Basophils % (auto) 0.5 % (0.0-2.0); Eosinophils % (auto) 0.3 % (0.0-7.0); Hematocrit 43.2 % (41.0-53.0); Hemoglobin 14.7 g/dL (13.5-17.5); Lymphocytes # (auto) 1.3 uL; Lymphocytes % (auto) 9.7 % (10.0-50.0); Mean Corpuscular Hemoglobin 30.7 pg (28.0-32.0); Mean Corpuscular Hgb Conc. 34.1 g/dL (32.0-36.0); Monocytes # (auto) 0.8 uL; Monocytes % (auto) 5.9 % (0.0-12.0); Neutrophils # (auto) 11.4 uL; Neutrophils % (auto) 83.6 % (37.0-80.0); Platelet Count (auto) 471 10^3/uL (140-450); Red Cell Distribution Width 13.8 % (11.8-14.3); White Blood Cell 13.7 10^3/uL (4.4-10.8)
[2018-06-08] MEDS ORDERED: PIPERACILLIN-TAZOB 3.375GM 100 ML IV ONE (08:30)
[2018-06-08] MEDS ORDERED: VANCOMYCIN 1GM/250ML 250 ML IV ONE (08:30)
[2018-06-08 10:04] LABS: Alcohol, Urine < 3.0 mg/dL (0-5); Amphetamine Screen, Urine POSITIVE (NEGATIVE); Barbiturate Scree,Urine NEGATIVE (NEGATIVE); Benzodiazephine Screen, Urine NEGATIVE (NEGATIVE); Cannabinoid Screen, Urine NEGATIVE (NEGATIVE); Cocaine Screen, Urine NEGATIVE (NEGATIVE); Opiate Scree,Urine NEGATIVE (NEGATIVE); Phencyclidine Screen, Urine NEGATIVE (NEGATIVE)
[2018-06-08] MEDS ORDERED: VANCOMYCIN PER PHARMACY 0 MG IV SCH (10:15)
[2018-06-08] MEDS ORDERED: MORPHINE SULFATE 4 MG/ML SYR/VIAL IV PRN (10:15)
[2018-06-08] MEDS ORDERED: ALBUTEROL SULF 2.5 MG/0.5ML(0.5%) NEB SOLN NEB PRN (10:15)
[2018-06-08] MEDS ORDERED: ACETAMINOPHEN 500 MG TAB PO PRN (10:15)
[2018-06-08] MEDS ORDERED: ONDANSETRON HCL 4 MG/2 ML VIAL IV PRN (10:15)
[2018-06-08] MEDS ORDERED: HYDROcodone-ACET 5/325MG TAB PO PRN (10:15)
[2018-06-08] MEDS ORDERED: IPRATROPIUM BROM 0.5 MG/2.5ML INH SOL NEB PRN (10:15)
[2018-06-08] MEDS ORDERED: NITROGLYCERIN 0.4 MG SL TAB SL PRN (10:15)
[2018-06-08 10:20] LABS: Urine Bacteria NONE SEEN /hpf (None Seen); Urine WBC 1 /hpf (0 - 3); Urine WBC Clumps PRESENT /hpf (None Seen)
[2018-06-08 10:23] LABS: Urine Blood Negative /uL (Negative)
[2018-06-08] MEDS: LORazepam 2MG/ML-1ML VIAL IV PRN ×2 (11:20→20:21)
[2018-06-08] MEDS: MORPHINE SULF INJ 2 MG/ML SYRINGE 1ML IV PRN ×2 (11:26→17:33)
--- NOTE | 2018-06-08 12:07 | NUR ---
ASSESSED PATIENT FOR PRN TX. PATIENT WAS ASLEEP COMFORTABLY ON ROOM AIR SPO2 93%, HR 85, RR 18. WILL COME BACK AND ASSESS PATIENT LATER FOR PRN.
[2018-06-08] MEDS: PIPERACILLIN-TAZOB 3.375GM 100 ML IV SCH ×2 (12:38→20:22)
[2018-06-08 15:48] VITALS: BP 156/94
[2018-06-08] MEDS ORDERED: ONDANSETRON HCL 4 MG/2 ML VIAL ONE (17:27)
[2018-06-08 22:12] VITALS: BP 145/109
[2018-06-08] MEDS ORDERED: VANCOMYCIN 750 MG in D5W 5% 250 ML IV SCH (23:00)
--- NOTE | 2018-06-08 23:08 | NUR ---
Respiratory note: PT ASSESSED FOR PRN MED NEB TX. HR 85, RR 16, SPO2 96% ON R/A, BS CLEAR T/O. NO SIGNS OF ANY RESPIRATORY DISTRESS NOTED. ADVISED PT TO PLEASE CALL IF NEEDED.
--- NOTE | 2018-06-09 00:15 | NUR ---
SECURITY CALLED PATIENT FOUND WITH AN EMPTY BOTTLE OF LIQUOR ON HIS BEDSIDE TABLE AND NUMEROUS CIGARETTE BUTTS ON HIS BED AND FLOOR. CHARGE NURSE AND SECURITY CALLED INTO PATIENTS ROOM. LEHR OPERATOR INITIATED FOR PATIENT SAFETY. PATIENT HAD ATIVAN AND NORCO FOR ANXIETY AND PAIN EARLIER. PATIENT HAS BEEN BELLIGERENT ROAMING THE HALLS LOOKING THROUGH EMPTY PATIENT TRAYS. SANDWICH OFFERED AND DRINK OFFERED. EARLIER PATIENT ALSO LEFT TO SMOKE AGAINST THIS NURSE'S ADVICE SINCE BECAUSE HE APPEARED UNSTEADY. PATIENT CURSED AT THIS NURSE AND LEFT ANY WAYS. SECURITY CALLED TO LOCATE PATIENT AT THAT TIME WELL.
--- NOTE | 2018-06-09 00:26 | NUR ---
PATIENT LEAVING AMA. ASSESSED AND PATIENT IS ALERT AND ORIENTED. VERY ARGUMENTATIVE. CURSING AT AND THREATENING SECURITY. STATES THAT HE WILL BLOW UP THIS FACILITY AND "PUT A RED LIGHT" ON THEM. IV REMOVED.
[2018-06-09] MEDS: LORazepam 2MG/ML-1ML VIAL IV PRN (00:34)
--- NOTE | 2018-06-09 00:36 | NUR ---
PATIENT SIGNED AMA FORM AND ESCORTED OUT BY SECURITY.
[2018-06-09] MEDS ORDERED: PANTOPRAZOLE 40 MG TAB PO SCH (10:00)
[2018-06-09] MEDS ORDERED: amLODIPine BESYLATE 5 MG TAB PO SCH (10:00)
== END 2018-06-09 00:37 | disposition left against medical advice (07) | DRG 720 ==
LOC: ER 05:29 → EDBD 05:29 → OVERFLOW 10:12 → WEST WING 19:05
PROVIDERS: ADMIT Nurse Practitioner Acute Care; ATTEND Nurse Practitioner Acute Care
DX: A41.9 Sepsis, unspecified organism (principal); E44.1 Mild protein-calorie malnutrition; L03.115 Cellulitis of right lower limb; F19.10 Other psychoactive substance abuse, uncomplicated; K27.9 Peptic ulcer, site unspecified, unspecified as acute or chronic, without hemorrhage or perforation; J44.9 Chronic obstructive pulmonary disease, unspecified; I10 Essential (primary) hypertension; F17.210 Nicotine dependence, cigarettes, uncomplicated; F15.90 Other stimulant use, unspecified, uncomplicated; K21.9 Gastro-esophageal reflux disease without esophagitis; Z59.0 Homelessness; Z80.1 Family history of malignant neoplasm of trachea, bronchus and lung; Z68.20 Body mass index [BMI] 20.0-20.9, adult
CPT/HCPCS: 36415; 71046; 73562; 73700; 80053; 80307; 81001; 85025; 87040; 96365; 96366; 96375; G0378; J2405; J2543; J7060

== ENCOUNTER 2018-06-17 06:50 | Emergency (ER) | payer MEDICAID ==
[~2018-06-17] VITALS: Ht 177.8 cm; Wt 81.6 kg
[2018-06-17 09:54] VITALS: BP 126/80
[2018-06-17] MEDS: cefTRIAXone SOD 1,000 MG VL IM ONE (10:15)
== END 2018-06-17 10:22 | disposition home or self-care (01) ==
LOC: ER 06:50
DX: S81.001D Unspecified open wound, right knee, subsequent encounter (principal); J44.9 Chronic obstructive pulmonary disease, unspecified; K21.9 Gastro-esophageal reflux disease without esophagitis; I10 Essential (primary) hypertension; F17.210 Nicotine dependence, cigarettes, uncomplicated; F12.90 Cannabis use, unspecified, uncomplicated; F15.90 Other stimulant use, unspecified, uncomplicated; Z79.899 Other long term (current) drug therapy; Z90.49 Acquired absence of other specified parts of digestive tract; Z59.0 Homelessness; X58.XXXD Exposure to other specified factors, subsequent encounter
CPT/HCPCS: 96372; 99283; J0696

== ENCOUNTER 2022-03-24 03:11 | Inpatient (IN) | payer MEDICAID ==
[~2022-03-24] VITALS: Ht 177.8 cm; Wt 90.5 kg
[~2022-03-24 03:11] MED LIST changes: +AMLO-489 PO; -AMLO5TAB13 PO; +MIRT-68 PO; -MIRT15TA PO
[2022-03-24] MEDS ORDERED: HYDROcodone-ACET 5/325MG TAB PO ONE (07:30)
[2022-03-24] MEDS ORDERED: IPRATROPIUM BROM 0.5 MG/2.5ML INH SOL NEB ONE (08:15)
[2022-03-24] MEDS ORDERED: ALBUTEROL SULF 2.5 MG/0.5ML(0.5%) NEB SOLN NEB ONE (08:15)
[2022-03-24 08:55] LABS: Basophils # (auto) 0.1 10 ^3/uL (0-0.2); Basophils % (auto) 1.1 % (0.0-2.0); Eosinophils # (auto) 0 10 ^3/uL (0-0.8); Eosinophils % (auto) 0.8 % (0.0-7.0); Hematocrit 41.5 % (41.0-53.0); Hemoglobin 13.8 g/dL (13.5-17.5); Lymphocytes # (auto) 0.5 10 ^3/uL (0.4-5.4); Mean Corpuscular Hemoglobin 29.6 pg (28.0-32.0); Mean Corpuscular Hgb Conc. 33.1 g/dL (32.0-36.0); Mean Corpuscular Volume 89.3 fL (80.0-100.0); Monocytes # (auto) 0.3 10 ^3/uL (0-1.3); Monocytes % (auto) 6.1 % (0.0-12.0); Nucleated Red Blood Cells % 0.3 %; Red Blood Cells 4.65 10^6/uL (4.5-5.90); Red Cell Distribution Width 15.1 % (11.8-14.3); White Blood Cell 4.9 10^3/uL (4.4-10.8)
[2022-03-24] MEDS ORDERED: KETOROLAC TROMETH 30 MG/ML 1ML VIAL IM ONE (09:00)
[2022-03-24 09:14] LABS: Calcium 8.2 mg/dL (8.5-10.1); Potassium 4.7 mmol/L (3.5-5.1)
[2022-03-24] MEDS ORDERED: LORazepam 0.5 MG TAB PO ONE (09:15)
[2022-03-24 09:18] LABS: Bilirubin, Total 0.4 mg/dL (0.2-1.0); Total Protein 6.6 g/dL (6.4-8.2)
[2022-03-24] MEDS ORDERED: methylPREDNISolone SOD SUCC 125 MG/2 ML VL IM ONE (10:45)
[2022-03-24] MEDS ORDERED: MORPHINE SULFATE INJ 2 MG/ml SYRG IV PRN (12:15)
[2022-03-24] MEDS ORDERED: NITROGLYCERIN 0.4 MG SL TAB SL PRN (12:15)
[2022-03-24] MEDS ORDERED: NICOTINE 7MG/24HR TOPICAL PATCH TD ONE (12:45)
[2022-03-24] MEDS ORDERED: MAGNESIUM SULFATE 1GM/100ML 100 ML IV ONE (12:45)
[2022-03-24 13:01] LABS: Cholesterol 202 mg/dL (< 200); Triglycerides 227 mg/dL (< 150)
[2022-03-24 13:03] LABS: HDL Cholesterol 49 mg/dL (40-59); LDL Cholesterol 128 mg/dL (< 100)
[2022-03-24 13:41] VITALS: BP 148/97
[2022-03-24] MEDS ORDERED: IOHEXOL 350 MG/ML 100ML IJ ONE (13:47)
[2022-03-24 15:20] LABS: INR 0.9 (0.9-1.15)
[2022-03-24] MEDS: SODIUM CHLORIDE 0.9% 1,000 ML IV SCH (15:25)
[2022-03-24] MEDS: MORPHINE SULFATE 4 MG/ML SYR/VIAL IV PRN (16:38)
[2022-03-24] MEDS: ALBUTEROL SULF 2.5 MG/0.5ML(0.5%) NEB SOLN NEB SCH (19:25)
[2022-03-24] MEDS: IPRATROPIUM BROM 0.5 MG/2.5ML INH SOL NEB SCH (19:25)
[2022-03-25] VITALS (7 sets, daily range): BP systolic 139–168; BP diastolic 64–113
[2022-03-25] MEDS ORDERED: ALBUTEROL MEDNEB 2.5 mg/3ml NEB ONE ×5 (00:41→23:41)
[2022-03-25] MEDS: methylPREDNISolone SOD SUCC 125 MG/2 ML VL IV SCH ×2 (01:18→09:43)
[2022-03-25] MEDS: MORPHINE SULFATE INJ 2 MG/ml SYRG IV PRN ×2 (01:19→13:25)
[2022-03-25] MEDS: MORPHINE SULFATE 4 MG/ML SYR/VIAL IV PRN (06:40)
[2022-03-25] MEDS: IPRATROPIUM BROM 0.5 MG/2.5ML INH SOL NEB SCH ×3 (07:00→20:00)
[2022-03-25] MEDS: ALBUTEROL SULF 2.5 MG/0.5ML(0.5%) NEB SOLN NEB SCH ×3 (07:00→20:01)
[2022-03-25 07:16] LABS: Basophils # (auto) 0 10 ^3/uL (0-0.2); Basophils % (auto) 0.1 % (0.0-2.0); Eosinophils # (auto) 0 10 ^3/uL (0-0.8); Hematocrit 35.9 % (41.0-53.0); Hemoglobin 12.3 g/dL (13.5-17.5); Lymphocytes # (auto) 0.2 10 ^3/uL (0.4-5.4); Lymphocytes % (auto) 9.3 % (10.0-50.0); Mean Corpuscular Hemoglobin 30.3 pg (28.0-32.0); Mean Corpuscular Hgb Conc. 34.2 g/dL (32.0-36.0); Mean Corpuscular Volume 88.5 fL (80.0-100.0); Monocytes # (auto) 0.1 10 ^3/uL (0-1.3); Monocytes % (auto) 5.3 % (0.0-12.0); Neutrophils % (auto) 85.3 % (37.0-80.0); Nucleated Red Blood Cells % 0.1 %; Red Blood Cells 4.06 10^6/uL (4.5-5.90); Red Cell Distribution Width 15.1 % (11.8-14.3); White Blood Cell 2.4 10^3/uL (4.4-10.8)
[2022-03-25 07:38] LABS: Albumin 2.9 g/dL (3.4-5.0); BUN/Creatinine Ratio 26.1; Bilirubin, Total 0.3 mg/dL (0.2-1.0); Calcium 7.9 mg/dL (8.5-10.1); Total Protein 6.4 g/dL (6.4-8.2)
[2022-03-25] MEDS: SODIUM CHLORIDE 0.9% 1,000 ML IV SCH (08:00)
[2022-03-25] MEDS ORDERED: hydrALAZINE HCL 20 MG/ML VL IV ONE (09:30)
[2022-03-25] MEDS ORDERED: hydrALAZINE HCL 20 MG/ML VL IV PRN ×2 (09:30→15:45)
[2022-03-25] MEDS: ENOXAPARIN SOD 40 MG/0.4 ML SYRINGE SC SCH (09:43)
[2022-03-25] MEDS: NICOTINE 7MG/24HR TOPICAL PATCH TD SCH (09:44)
[2022-03-25] MEDS ORDERED: dilTIAZem 120MG ER CAP PO ONE (10:45)
[2022-03-25] MEDS ORDERED: ASPirin 81 mg TAB PO ONE (10:45)
[2022-03-25] MEDS ORDERED: SENNA 8.6 MG TAB PO PRN (15:45)
[2022-03-25] MEDS ORDERED: predniSONE 20 MG TAB PO ONE (15:45)
[2022-03-25] MEDS ORDERED: POLYETHYLENE GLYCOL 17 GM PWDR PO PRN (15:45)
[2022-03-25] MEDS: HYDROcodone-ACET 5/325MG TAB PO PRN (16:38)
[2022-03-25] MEDS ORDERED: ACETAMINOPHEN 500 MG TAB PO PRN (22:00)
[2022-03-26] MEDS: ATORVASTATIN 20 MG TAB PO SCH ×2 (01:16→22:06)
[2022-03-26] MEDS: SENNA 8.6 MG TAB PO SCH ×2 (01:17→22:06)
[2022-03-26] MEDS: HYDROcodone-ACET 5/325MG TAB PO PRN ×4 (01:18→23:01)
[2022-03-26 05:00] VITALS: BP 125/81
[2022-03-26] MEDS: IPRATROPIUM BROM 0.5 MG/2.5ML INH SOL NEB SCH ×3 (06:00→18:55)
[2022-03-26] MEDS: ALBUTEROL SULF 2.5 MG/0.5ML(0.5%) NEB SOLN NEB SCH ×3 (06:00→18:55)
[2022-03-26] MEDS ORDERED: ALBUTEROL MEDNEB 2.5 mg/3ml NEB ONE (06:02)
[2022-03-26 08:37] VITALS: BP_SYST 134; BP_SYST 149; BP_DIAS 46; BP_DIAS 92
[2022-03-26] MEDS: ASPirin 81 mg TAB PO SCH (09:39)
[2022-03-26] MEDS: dilTIAZem 120MG ER CAP PO SCH (09:40)
[2022-03-26] MEDS: predniSONE 20 MG TAB PO SCH (09:40)
[2022-03-26] MEDS: ALBUTEROL SULF 2.5 MG/0.5ML(0.5%) NEB SOLN NEB PRN ×2 (09:41→15:57)
[2022-03-26] MEDS: BENAZEPRIL HCL 10 MG TAB PO SCH (09:41)
[2022-03-26] MEDS: PANTOPRAZOLE 40 MG TAB PO SCH (09:41)
[2022-03-26] MEDS: IPRATROPIUM BROM 0.5 MG/2.5ML INH SOL NEB PRN ×2 (09:41→15:57)
[2022-03-26] MEDS: ENOXAPARIN SOD 40 MG/0.4 ML SYRINGE SC SCH (09:42)
[2022-03-26] MEDS: NICOTINE 7MG/24HR TOPICAL PATCH TD SCH (09:42)
[2022-03-26 12:49] VITALS: BP 163/99
[2022-03-26 12:53] VITALS: BP 156/95
[2022-03-26] MEDS ORDERED: ARTIFICIAL TEARS 15ml EACHEYE PRN (14:45)
[2022-03-26 17:05] VITALS: BP 134/85
[2022-03-26 18:33] LABS: Urine Bacteria NONE SEEN /hpf (None Seen); Urine Blood TRACE /uL (Negative); Urine Specific Gravity 1.008 (1.001-1.035); Urine WBC <1 /hpf (0 - 3)
[2022-03-26 18:43] LABS: Alcohol, Urine < 3.0 mg/dL (0-10); Amphetamine Screen, Urine NEGATIVE (NEGATIVE); Barbiturate Scree,Urine NEGATIVE (NEGATIVE); Benzodiazephine Screen, Urine NEGATIVE (NEGATIVE); Cannabinoid Screen, Urine NEGATIVE (NEGATIVE); Cocaine Screen, Urine NEGATIVE (NEGATIVE); Opiate Scree,Urine NEGATIVE (NEGATIVE); Phencyclidine Screen, Urine NEGATIVE (NEGATIVE)
[2022-03-26 22:00] VITALS: BP 148/90
[2022-03-27 05:00] VITALS: BP 150/93
[2022-03-27] MEDS: IPRATROPIUM BROM 0.5 MG/2.5ML INH SOL NEB SCH ×3 (05:25→20:10)
[2022-03-27] MEDS: ALBUTEROL SULF 2.5 MG/0.5ML(0.5%) NEB SOLN NEB SCH ×3 (05:25→20:10)
[2022-03-27] MEDS: HYDROcodone-ACET 5/325MG TAB PO PRN ×4 (06:36→23:00)
[2022-03-27 08:45] VITALS: BP 162/109
[2022-03-27] MEDS: NICOTINE 7MG/24HR TOPICAL PATCH TD SCH (10:19)
[2022-03-27] MEDS: ASPirin 81 mg TAB PO SCH (10:19)
[2022-03-27] MEDS: predniSONE 20 MG TAB PO SCH (10:20)
[2022-03-27] MEDS: PANTOPRAZOLE 40 MG TAB PO SCH (10:21)
[2022-03-27] MEDS: BENAZEPRIL HCL 10 MG TAB PO SCH (10:21)
[2022-03-27] MEDS: dilTIAZem 120MG ER CAP PO SCH (10:21)
[2022-03-27] MEDS: ENOXAPARIN SOD 40 MG/0.4 ML SYRINGE SC SCH (10:22)
[2022-03-27] MEDS ORDERED: THROAT LOZENGES(CEPASTAT) MT PRN (10:45)
[2022-03-27 12:45] VITALS: BP 176/95
[2022-03-27 13:30] VITALS: BP 162/109
[2022-03-27] MEDS: ALBUTEROL SULF 2.5 MG/0.5ML(0.5%) NEB SOLN NEB PRN (15:39)
[2022-03-27 16:40] VITALS: BP 164/93
[2022-03-27] MEDS: ATORVASTATIN 20 MG TAB PO SCH (21:13)
[2022-03-27] MEDS: SENNA 8.6 MG TAB PO SCH (21:13)
[2022-03-27 22:00] VITALS: BP 165/100
[2022-03-28] MEDS: ALBUTEROL SULF 2.5 MG/0.5ML(0.5%) NEB SOLN NEB SCH (00:52)
[2022-03-28] MEDS: IPRATROPIUM BROM 0.5 MG/2.5ML INH SOL NEB SCH (00:52)
[2022-03-28 04:54] LABS: Potassium 4.4 mmol/L (3.5-5.1)
[2022-03-28 05:00] VITALS: BP 161/106
[2022-03-28 05:01] LABS: BUN/Creatinine Ratio 22.5; Calcium 8.9 mg/dL (8.5-10.1)
[2022-03-28 05:03] LABS: Bilirubin, Total 0.5 mg/dL (0.2-1.0); Total Protein 6.3 g/dL (6.4-8.2)
[2022-03-28 05:07] LABS: Hematocrit 38.3 % (41.0-53.0); Mean Corpuscular Hemoglobin 30.4 pg (28.0-32.0); Mean Corpuscular Hgb Conc. 33.9 g/dL (32.0-36.0); Mean Corpuscular Volume 89.7 fL (80.0-100.0); Red Blood Cells 4.28 10^6/uL (4.5-5.90); Red Cell Distribution Width 15.1 % (11.8-14.3); White Blood Cell 6.3 10^3/uL (4.4-10.8)
[2022-03-28 05:16] LABS: Basophils % (manual) 0 (0.0-2.0); Blast Cells 0; Metamyelocytes % 0; Promyelocytes % 0; Reactive Lymphocytes 0
[2022-03-28] MEDS: HYDROcodone-ACET 5/325MG TAB PO PRN ×2 (06:50→14:01)
[2022-03-28 08:00] VITALS: BP 165/110
[2022-03-28 08:45] VITALS: BP 165/110
[2022-03-28 09:26] LABS: Band Neutrophils % (manual) 2; Eosinophils % (manual) 1 (0-7); Lymphocytes % (manual) 24 (10.0-50.0); Monocytes % (manual) 6 (0-12); Myelocytes % 1
[2022-03-28] MEDS: predniSONE 20 MG TAB PO SCH (09:59)
[2022-03-28] MEDS: ASPirin 81 mg TAB PO SCH (09:59)
[2022-03-28] MEDS: BENAZEPRIL HCL 10 MG TAB PO SCH (10:00)
[2022-03-28] MEDS: ENOXAPARIN SOD 40 MG/0.4 ML SYRINGE SC SCH (10:00)
[2022-03-28] MEDS: dilTIAZem 120MG ER CAP PO SCH (10:00)
[2022-03-28] MEDS: NICOTINE 7MG/24HR TOPICAL PATCH TD SCH (10:00)
[2022-03-28] MEDS: PANTOPRAZOLE 40 MG TAB PO SCH (10:00)
[2022-03-28 12:45] VITALS: BP 175/103
[2022-03-28] MEDS ORDERED: ALB5IS NEB (13:07)
[2022-03-28] MEDS ORDERED: BENA10TA15 PO (13:07)
[2022-03-28] MEDS ORDERED: [UNRECOGNIZED DRUG - CODE] PO (13:07)
[2022-03-28] MEDS ORDERED: SENN-83 PO (13:07)
[2022-03-28] MEDS ORDERED: NIC21P TOP (13:07)
[2022-03-28] MEDS ORDERED: PRED20TA2 PO (13:07)
[2022-03-28] MEDS ORDERED: ASPI-325 PO (13:07)
[2022-03-28] MEDS ORDERED: DILT120C12 PO (13:07)
[2022-03-28] MEDS ORDERED: IPR002IS NEB (13:07)
[2022-03-28] MEDS ORDERED: TRAM-711 PO (13:07)
[2022-03-28] MEDS ORDERED: TIOT1AER2 IN (13:14)
[2022-03-28 14:06] VITALS: BP 165/110
== END 2022-03-28 16:14 | disposition home or self-care (01) | DRG 144 ==
LOC: EDUNIT# 03:11 → EDBD 03:11 → ER 03:11 → TELE 12:25 → TELE-WESTW 23:37
PROVIDERS: ADMIT Registered Nurse; ATTEND Student in an Organized Health Care Education/Training Program
DX: S22.32XA Fracture of one rib, left side, initial encounter for closed fracture (principal); J96.01 Acute respiratory failure with hypoxia; X58.XXXA Exposure to other specified factors, initial encounter; J44.1 Chronic obstructive pulmonary disease with (acute) exacerbation; J90 Pleural effusion, not elsewhere classified; I48.0 Paroxysmal atrial fibrillation; E78.5 Hyperlipidemia, unspecified; F17.210 Nicotine dependence, cigarettes, uncomplicated; I10 Essential (primary) hypertension; K21.9 Gastro-esophageal reflux disease without esophagitis; F41.9 Anxiety disorder, unspecified; Z20.822 Contact with and (suspected) exposure to COVID-19; K80.20 Calculus of gallbladder without cholecystitis without obstruction; Y93.89 Activity, other specified; Y92.89 Other specified places as the place of occurrence of the external cause; Z99.81 Dependence on supplemental oxygen; Z59.00 Homelessness unspecified; Z80.1 Family history of malignant neoplasm of trachea, bronchus and lung; Z90.49 Acquired absence of other specified parts of digestive tract; Y99.8 Other external cause status
CPT/HCPCS: 36415; 36600; 71045; 71111; 71275; 80053; 80061; 80307; 81001; 82805; 83036; 83735; 83880; 84443; 85007; 85025; 85027; 85610; 87426; 87804; 93005; 93306; 93970; 94640; G0378